=== PATIENT | female | born 2000 | race Caucasian/White ===

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

== ENCOUNTER 2019-02-19 09:55 | Emergency (ER) | payer OTHER, BC ==
[~2019-02-19] VITALS: Ht 157.5 cm; Wt 50.9 kg
[~2019-02-19 09:55] MED LIST: birth control
[2019-02-19 10:09] VITALS: BP 123/66; TEMP 98
[2019-02-19] MEDS ORDERED: ZYRTEC 10MG10 MG PO (10:48)
[2019-02-19 11:25] VITALS: PULSE 81
== END 2019-02-19 11:26 | disposition home or self-care (01) ==
LOC: COL.ER 09:55
DX: S16.1XXA Strain of muscle, fascia and tendon at neck level, initial encounter (principal); V43.52XA Car driver injured in collision with other type car in traffic accident, initial encounter